=== PATIENT | male | born 1960 | race Caucasian/White ===

== ENCOUNTER 2016-09-22 13:42 | Emergency (ER) | payer MEDICAID ==
[~2016-09-22] VITALS: Ht 172.7 cm; Wt 65.0 kg
[~2016-09-22 13:42] MED LIST: AFRI0.059 EACH NARE; ALBU.5I NEB; HYDR-3535 PO; HYDR-3583 PO; PRED10 PO; PRIL20CA9 PO
[2016-09-22 13:44] VITALS: BP 140/86; PULSE 84; RESP 20; TEMP 97.7; O2SAT 97
[2016-09-22] MEDS ORDERED: PRED20 PO (14:33)
[2016-09-22] MEDS ORDERED: LISI10TA3 PO (14:33)
[2016-09-22] MEDS ORDERED: SODIUM CHLORIDE 0.9% FLUSH 5 ML FLUSH IVF PRN ×2 (15:00)
--- NOTE | 2016-09-22 15:05 | PD ---
HPI Chief Complaint: Complaint Time Seen by Provider: 15:00 Travel History International Travel<30 days: No Contact w/Intl Traveler<30days: No Traveled to known affect area: No History of Present Illness HPI Patient comes in complaining of testicular pain and swelling ongoing for approximately 3 weeks. Patient states approximately 6 weeks ago he had a colostomy reversal having some tenderness in his left testicle, but did not notice it was Swollen until Roughly 3 Weeks Ago. Patient Denies Any Fevers with This, Nausea, Vomiting, back pain, chest pain, or shortness of breath. Denies any radiation of the pain. Patient describes pain is aching like in nature. Denies any dysuria or penile discharge. PFSH Past Medical History Cancer: No Cardiovascular Problems: No COPD: Yes Diabetes: No Diminished Hearing: No Endocrine: No Gastrointestinal Disorders: Yes (colostomy, gerd) Genitourinary: Yes (past cystoscopy) Hepatitis: No Hiatal Hernia: Yes Hypertension: Yes Immune Disorder: No Musculoskeletal: Yes (back pain ) Neurologic: No Psychiatric: Yes (anxiety) Reproductive: No Respiratory: Yes (emphysema, copd) Thyroid Disease: No Past Surgical History Abdominal Surgery: Yes (colostomy with reversal ) AICD: No Cardiac Surgery: No Ear Surgery: No Endocrine Surgery: No Eye Surgery: No Genitourinary Surgery: Yes (cystoscopy) Gynecologic Surgery: No Joint Replacement: No Oral Surgery: No Pacemaker: No Thoracic Surgery: No Social History Alcohol Use: No Tobacco Use: No Substance Use: No Allergies-Medications (Allergen,Severity, Reaction): Coded Allergies: No Known Allergies (Unverified , 09/22/16) Reported Meds & Prescriptions Reported Meds & Active Scripts Active Reported Prednisone 20 Mg Tab 20 Mg PO DAILY Lisinopril 10 Mg Tab 10 Mg PO DAILY Afrin 12 Hour Nasal (Oxymetazoline HCl) 0.05% [place] 2-3 [place] EACH NARE Q12H PRN Prilosec (Omeprazole) 20 Mg Cap 20 Mg PO DAILY Albuterol Neb (Albuterol Sulfate) 2.5 Mg/0.5 Ml Neb 2.5 Mg NEB QID NEB Note: The Albuterol Sulfate Inhalation Solution is concentrated and must be diluted. Read complete instructions carefully before using. Review of Systems Except as stated in HPI: all other systems reviewed are Neg Physical Exam Narrative GENERAL: Well-developed, well nourished, in no acute distress, and non-ill appearing. SKIN: Warm and dry. Dressing of abdomen noted to be dry clean intact from recent surgery. HEAD: Atraumatic. Normocephalic. EYES: Pupils equal and round. EOMI. No scleral icterus. No injection or drainage. ENT: No nasal bleeding or discharge. Mucous membranes pink and moist. NECK: Trachea midline. Supple. No nuclear rigidity. RESPIRATORY: No accessory muscle use. No respiratory distress. GASTROINTESTINAL: Abdomen soft, minimal tenderness noted around dressing, nondistended. Hepatic and splenic margins not palpable. Normal bowel sounds 4. No pulsatile mass. GENITOURINARY: Uncircumcised. Testes descended bilaterally without evidence of rotation. No lesions or erythema. No urethral discharge. Left testicle is enlarged compared to right and tender to palpation. MUSCULOSKELETAL: No obvious deformities. No clubbing. No cyanosis. No edema. Full range of motion. NEUROLOGICAL: Awake and alert. No obvious cranial nerve deficits. Motor grossly within normal limits. Normal speech. PSYCHIATRIC: Appropriate mood and affect; insight and judgment normal. Data Data Last Documented VS Vital Signs Date Time Temp Pulse Resp B/P Pulse Ox O2 Delivery O2 Flow Rate FiO2 09/22/16 13:44 97.7 84 20 140/86 97 Room Air Orders Us Testicles W Doppler (09/22/16 14:48) Sodium Chloride 0.9% Flush (Ns Flush) (09/22/16 15:00) Urinalysis - C+S If Indicated (09/22/16 14:52) Sodium Chloride 0.9% Flush (Ns Flush) (09/22/16 15:00) Labs Laboratory Tests Test 09/22/16 15:15 Urine Color YELLOW Urine Turbidity HAZY Urine pH 6.0 Urine Specific [place] 1.035 Urine Protein 30 mg/dL Urine Glucose (UA) NEG mg/dL Urine Ketones NEG mg/dL Urine Occult Blood NEG Urine Nitrite NEG Urine Bilirubin NEG Urine Urobilinogen 2.0 MG/DL Urine Leukocyte Esterase TRACE Urine RBC 3 /hpf Urine WBC 2 /hpf Urine Squamous Epithelial <1 /hpf Cells Urine Bacteria RARE /hpf Urine Mucus MANY /lpf Microscopic Urinalysis Comment CULT NOT INDICATED MDM Medical Decision Making Medical Screen Exam Complete: Yes Emergency Medical Condition: Yes Differential Diagnosis Epididymitis, orchitis, inguinal hernia, cancer, hydrocele, varicosities, other Narrative Course Patient in no obvious distress upon re-evaluation. All pertinent laboratory/ Radiology result(s) discussed with patient. Discussed patient with Dr. Ramírez, who saw and evaluated the patient is in agreement with plan of care and disposition. Patient was instructed on using NSAID pain medications reports he has plenty of ibuprofen at home. Patient was also advised on use of a jockstrap for additional support and to decrease pain as well as the hydrocele. Any questions/concerns in reference to patient diagnosis/condition discussed and clarified prior to patient's discharge. Reinforced sheer importance of close follow up with patient's primary physician or primary care clinic and/or urologist. Instructed patient to return to ED immediately, if symptoms return/ worsen. Pt showed understanding of above instructions. Further instructions and recommendations were detailed in discharge paperwork. Pt ambulated without difficulty out of ED at discharge. Diagnosis Primary Impression: Hydrocele in adult Additional Impression: Cyst of epididymis determined by ultrasound Referrals: Chidi Stephen MD Patient Instructions: General Instructions, Hydrocele (ED) Additional Instructions: Follow-up with your primary care physician and/or urologist this week for reevaluation. Use [id number] ibuprofen as needed for pain. Follow instructions on the packaging. Use a jock strap for additional support. Return to the emergency department if symptoms get worse. Disposition: 01 DISCHARGE HOME Condition: Stable Fabio Del Real Sep 22, 2016 15:05
[2016-09-22 15:39] LABS: BACTERIA, URINE RARE /hpf; BLOOD, URINE NEG (NEG); COMMENT (UR) CULT NOT INDICATED; CULTURE IF INDICATED CULT NOT INDICATED; GLUCOSE,URINE NEG (NEG); KETONE, URINE NEG (NEG); MUCUS URINE MANY /lpf (OCC); NITRITE,URINE NEG (NEG); SQUAMOUS EPITHELIAL CELL URINE <1 /hpf (0-5); URINE COLOR YELLOW (YELLW/STRAW)
--- NOTE | 2016-09-22 16:46 | RADRPT ---
EXAM DATE/TIME: 09/22/2016 15:18 [facility] COMPARISON: No previous studies available for comparison. INDICATIONS : Testicular swelling. MEDICAL HISTORY : Hypertension. COPD. Colostomy. GERD. SURGICAL HISTORY : Colostomy with reversal. Cystoscopy. ENCOUNTER: Initial ACUITY: 3 months PAIN SCORE: 6/10 LOCATION: Bilateral testicles. MEASUREMENTS: RIGHT TESTICLE: 4.1 x 2.8 x 2.8 x cm LEFT TESTICLE: 4.3 x 3.2 x 2.9 x cm FINDINGS: Both testicles appear normal in size and demonstrate normal vascularity. There is cystic change iden tified in the epididymal heads bilaterally. There is a 3 mm echogenic focus seen off the periphery o f the left testicle likely representing a testicular appendix. There are bilateral hydroceles being large on the left and mild on the right. A significant varicocele is not seen. CONCLUSION: 1. The testicles appear normal. 2. Bilateral hydroceles being large on the left and mild on the right. 3. Mild cystic change seen in the epididymal head regions likely representing epididymal head cysts or spermatoceles. Mendoza Donahue MD on September 22, 2016 at 16:23 Board Certified Radiologist. This report was verified electronically.
--- NOTE | 2016-09-22 17:15 | PD ---
Data Data Last Documented VS Vital Signs Date Time Temp Pulse Resp B/P Pulse Ox O2 Delivery O2 Flow Rate FiO2 09/22/16 13:44 97.7 84 20 140/86 97 Room Air Orders Us Testicles W Doppler (09/22/16 14:48) Sodium Chloride 0.9% Flush (Ns Flush) (09/22/16 15:00) Urinalysis - C+S If Indicated (09/22/16 14:52) Sodium Chloride 0.9% Flush (Ns Flush) (09/22/16 15:00) Labs Laboratory Tests Test 09/22/16 15:15 Urine Color YELLOW Urine Turbidity HAZY Urine pH 6.0 Urine Specific [place] 1.035 Urine Protein 30 mg/dL Urine Glucose (UA) NEG mg/dL Urine Ketones NEG mg/dL Urine Occult Blood NEG Urine Nitrite NEG Urine Bilirubin NEG Urine Urobilinogen 2.0 MG/DL Urine Leukocyte Esterase TRACE Urine RBC 3 /hpf Urine WBC 2 /hpf Urine Squamous Epithelial <1 /hpf Cells Urine Bacteria RARE /hpf Urine Mucus MANY /lpf Microscopic Urinalysis Comment CULT NOT INDICATED MDM Supervised Visit with HENRI: Yes Narrative Course The history, exam, and medical decision-making in the associated mid-level provider note were completed with my assistance. I reviewed and agree with the findings presented. I attest that I had a [id number] encounter with the patient on the same day, and personally performed and documented my assessment and findings in the medical record. *My assessment and Findings: 56-year-old male status post recent colonoscopy reversal presents with worsening left testicular pain. Found of hydrocele. Possibly related to surgery. Recommend supportive treatment, scrotal elevation, follow-up with urology. Diagnosis Primary Impression: Hydrocele in adult Additional Impression: Cyst of epididymis determined by ultrasound Referrals: Chidi Stephen MD Patient Instructions: General Instructions, Hydrocele (ED) Additional Instruction: Follow-up with your primary care physician and/or urologist this week for reevaluation. Use [id number] ibuprofen as needed for pain. Follow instructions on the packaging. Return to the emergency department if symptoms get worse. Disposition: 01 DISCHARGE HOME Condition: Stable Mati Ramírez MD Sep 22, 2016 17:15
[2016-09-22 17:28] VITALS: BP 125/82; PULSE 80; RESP 20; O2SAT 97
[2016-12-26] MEDS ORDERED: TAMS5CAP PO (11:36)
[2016-12-31] MEDS ORDERED: LISI10TA3 PO (11:10)
[2016-12-31] MEDS ORDERED: IPRASOL INH (11:11)
[2017-01-17] MEDS ORDERED: HYDR-3583 PO (09:32)
[2017-02-07] MEDS ORDERED: HYDR-3583 PO (13:35)
[2017-02-11] MEDS ORDERED: OMEP20TA PO (11:20)
[2017-02-11] MEDS ORDERED: AFRI0.052 EACH NARE (11:20)
== END 2016-09-22 17:28 | disposition home or self-care (01) ==
LOC: NEPE 13:42
DX: N43.3 Hydrocele, unspecified (principal); N50.3 Cyst of epididymis; J44.9 Chronic obstructive pulmonary disease, unspecified; Z43.3 Encounter for attention to colostomy; Z46.9 Encounter for fitting and adjustment of unspecified device; I10 Essential (primary) hypertension; F41.9 Anxiety disorder, unspecified
CPT/HCPCS: 76870; 81001; 93975

== ENCOUNTER → 2017-01-17 | Day surgery (SDC) | payer MEDICAID ==
[~2017-01-17] VITALS: Ht 170.2 cm; Wt 65.2 kg
[~2017-01-17] MED LIST changes: +ACETAMINOPHEN 1000 MG/100 ML VIAL IV ONE; +ACETAMINOPHEN/HYDROcodone 325 MG/10 MG TAB PO PRN; +AFRI0.052 EACH NARE; -ALBU.5I NEB; +BUPIVACAINE HCL PF 0.5% 30 ML VIAL ONE; +CHLORHEXIDINE GLUCONATE 2 % 1 PACK (2 CLOTHS) TOPICAL PRN; +DO NOT ADM ANY ANTICOAGULANT DRUGS PRN; +FAMOTIDINE 20 MG/2 ML VIAL ONE; -HYDR-3535 PO; +HYDROmorphone HCL PF 2 MG/ML VIAL IV PRN; +INSULIN HUMAN REGULAR 1,000 UNITS/10 ML VIAL SQ PRN; +IPRASOL INH; +LACTATED RINGER'S 1000 ML INJ 1,000 ML IV ONE; +LACTATED RINGER'S 1000 ML IV PRN; +LISI10TA3 PO; +METOPROLOL TARTRATE 25 MG TAB PO PRN; +MIDAZOLAM HCL 2 MG/2 ML VIAL ONE; +MORPHINE SULFATE 4 MG/ML INJ ONE; +OMEP20TA PO; +ONDANSETRON HCL 4 MG/2 ML VIAL IV PUSH ONE; +ONDANSETRON HCL 4 MG/2 ML VIAL IV PUSH PRN; +POVIDONE IODINE 5% (ANTISEPSIS KIT) 4 APPLICATIONS EACH NARE PRN; -PRED10 PO; +PRED20 PO; +PROPOFOL 200 MG/20 ML AMP IV ONE; +SODIUM CHLORID 0.9% 500 ML IV PRN; +fentaNYL CITRATE 250 MCG/5 ML AMP ONE
[2017-01-17] MEDS: ceFAZolin 1,000 MG/NS 100 ML IV SCH ×4 (09:30)
[2017-01-17 09:33] VITALS: BP 131/79; PULSE 79; RESP 20; TEMP 98.7; O2SAT 99
[2017-01-17 09:58] LABS: AUTOMATED NEUTROPHIL # 11.1 TH/MM3 (1.8-7.7); BASOPHIL # 0.1 TH/MM3 (0-0.2); BASOPHIL % 0.5 % (0.0-2.0); HEMO FLAGS DIFF FINAL; LYMPH % 2.9 % (9.0-44.0); LYMPHOCYTE # 0.3 TH/MM3 (1.0-4.8); MEAN CELL VOLUME 79.8 FL (80.0-100.0); MEAN CORPUSCULAR HGB CONC 31.3 % (32.0-36.0); NEUT % 92.6 % (16.0-70.0); PLATELET COUNT 442 TH/MM3 (150-450); RED BLOOD COUNT 4.51 MIL/MM3 (4.50-5.90); RED CELL DISTRIBUTION WIDTH 16.9 % (11.6-17.2); WHITE BLOOD COUNT 11.9 TH/MM3 (4.0-11.0)
--- NOTE | 2017-01-17 11:27 | PD.OP ---
Operative Report Date of Surgery: January 17, 2017 Preoperative Diagnosis: Left hydrocele Postoperative Diagnosis: Same Procedure: Left hydrocelectomy Anesthesia: Gen. LMA Surgeon: Osorio Angeles Accounting Technician(s): Constanza Resident Surgeon: None Operation and Findings: Mendoza Turner is a 56-year-old male with history of a left hydrocele. Decision was made to bring the patient to the operating room undergo left hydrocelectomy. Risk and benefits were discussed preoperatively he was willing to proceed. The patient was brought to the operating room and was identified by myself as Mendoza Turner. He was placed on the operating room table in the supine position, prepped and draped in usual sterile fashion, received preprocedure antibiotics, and general LMA anesthesia was administered. 15 blade was used to make the trans-scrotal incision over the left hemiscrotum. The overlying tissue around the hydrocele sac was divided and then the large hydrocele sac with the testicle was delivered out of the scrotum. Ray-Darian sponges were used to remove any overlying tissue from the hydrocele sac. Once that was done then the hydrocele sac was opened and the fluid was drained. It was brown in color as were some minimal bleeding noted along the testicle. Intraoperative evaluation of the testicle showed no evidence of any masses that could be palpated. The heart usual sac was then bottlenecked and residual excess tissue was then cut. The edges of the wound were then cauterized. The edges were brought together and this was oversewn with a 3-0 chromic suture. Another running 3-0 chromic suture was then placed over the oversewn portion in interlocking fashion. The left hemiscrotum was then irrigated and any areas of bleeding were cauterized. Marsha was then placed in the left hemiscrotum. The testicle was then delivered back into the left hemiscrotum in the lateral sulcus was identified. The wound was closed with a running 3-0 Vicryl suture. 0.5% Marcaine was placed into the wound prior to closure. He tolerated the procedure well and was extubated and transferred to the recovery room a stable condition. He will follow-up in one week in the office. Osorio Angeles DO January 17, 2017 11:27
[2017-01-17 12:30] VITALS: BP 126/78; PULSE 75; RESP 18; TEMP 98.1; O2SAT 95
== END | disposition home or self-care (01) ==
LOC: HSDC 08:44
PROVIDERS: ATTEND Urology
DX: N43.3 Hydrocele, unspecified (principal)
CPT/HCPCS: 00920; 55040; 84153; 85025; 88302; J0131; J0690; J2250; J2270; J2405; J3010; J7120; 88305

== ENCOUNTER 2017-03-27 17:53 | Emergency (ER) | payer MEDICAID ==
[~2017-03-27] VITALS: Ht 172.7 cm; Wt 68.0 kg
[~2017-03-27 17:53] MED LIST changes: -ACETAMINOPHEN 1000 MG/100 ML VIAL IV ONE; -ACETAMINOPHEN/HYDROcodone 325 MG/10 MG TAB PO PRN; -AFRI0.059 EACH NARE; -BUPIVACAINE HCL PF 0.5% 30 ML VIAL ONE; -CHLORHEXIDINE GLUCONATE 2 % 1 PACK (2 CLOTHS) TOPICAL PRN; -DO NOT ADM ANY ANTICOAGULANT DRUGS PRN; -FAMOTIDINE 20 MG/2 ML VIAL ONE; -HYDROmorphone HCL PF 2 MG/ML VIAL IV PRN; -INSULIN HUMAN REGULAR 1,000 UNITS/10 ML VIAL SQ PRN; -IPRASOL INH; -LACTATED RINGER'S 1000 ML INJ 1,000 ML IV ONE; -LACTATED RINGER'S 1000 ML IV PRN; -METOPROLOL TARTRATE 25 MG TAB PO PRN; -MIDAZOLAM HCL 2 MG/2 ML VIAL ONE; -MORPHINE SULFATE 4 MG/ML INJ ONE; -ONDANSETRON HCL 4 MG/2 ML VIAL IV PUSH ONE; -ONDANSETRON HCL 4 MG/2 ML VIAL IV PUSH PRN; -POVIDONE IODINE 5% (ANTISEPSIS KIT) 4 APPLICATIONS EACH NARE PRN; -PRIL20CA9 PO; -PROPOFOL 200 MG/20 ML AMP IV ONE; -SODIUM CHLORID 0.9% 500 ML IV PRN; -fentaNYL CITRATE 250 MCG/5 ML AMP ONE
[2017-03-27 17:55] VITALS: BP 134/72; PULSE 122; RESP 24; TEMP 98.2; O2SAT 99
[2017-03-27] MEDS ORDERED: SODIUM CHLOR 0.9% 1000 ML INJ 1,000 ML IV SCH (18:30)
--- NOTE | 2017-03-27 18:40 | PD ---
HPI Chief Complaint: Abnormal Results Time Seen by Provider: 18:30 Travel History International Travel<30 days: No Contact w/Intl Traveler<30days: No Traveled to known affect area: No History of Present Illness HPI This is a 56-year-old male who is sent here by his primary care physician office for evaluation of "abnormal labs." He reports that a few days ago he had outpatient blood work and he was called today and told that he had anemia. Was recommended that he come here for further evaluation. The patient reports that he feels normal. He reports some chronic dyspnea secondary to COPD but denies any worsening symptoms. He denies any dizziness, lightheadedness, abdominal pain, weakness. He reports that a few days ago he was having some dry heaves and some "flulike symptoms" and so he has been taking Pepto-Bismol. He reports that he has been having black stools since he started taking the Pepto-Bismol. He denies any history of GI bleeding. He has no other complaints. PFSH Past Medical History Cancer: No Cardiovascular Problems: No COPD: Yes Diabetes: No Diminished Hearing: No Endocrine: No Gastrointestinal Disorders: Yes (colostomy, gerd) Genitourinary: Yes (past cystoscopy) Hepatitis: No Hiatal Hernia: Yes Hypertension: Yes Immune Disorder: No Musculoskeletal: Yes (back pain ) Neurologic: No Psychiatric: Yes (anxiety) Reproductive: No Respiratory: Yes (COPD) Thyroid Disease: No Tetanus Vaccination: < 5 Years Influenza Vaccination: No Past Surgical History Abdominal Surgery: Yes AICD: No Cardiac Surgery: No Ear Surgery: No Endocrine Surgery: No Eye Surgery: No Genitourinary Surgery: Yes Gynecologic Surgery: No Joint Replacement: No Oral Surgery: No Pacemaker: No Thoracic Surgery: No Social History Alcohol Use: No Tobacco Use: Yes Substance Use: No Allergies-Medications (Allergen,Severity, Reaction): Coded Allergies: Aspirin (Verified Allergy, Severe, BLEEDING, 03/27/17) PT STATES STOMACH GETS BLOATED AND BLEEDING Reported Meds & Prescriptions Reported Meds & Active Scripts Active Hydrocodone-Acetaminophen 10-325 mg Tab 1 Tab PO Q8HR PRN Lisinopril 10 Mg Tab 10 Mg PO DAILY Reported Afrin Nasal [place] (Oxymetazoline HCl) 0.05% [place] 2-3 [place] EACH NARE Q12H PRN Omeprazole 20 Mg Tab 20 Mg PO DAILY Prednisone 20 Mg Tab 10 Mg PO BID Review of Systems Except as stated in HPI: all other systems reviewed are Neg Physical Exam Narrative GENERAL: Well-developed well-nourished male in no acute distress SKIN: Warm and dry. HEAD: Atraumatic. Normocephalic. EYES: Pupils equal and round. No scleral icterus. No injection or drainage. ENT: No nasal bleeding or discharge. Mucous membranes pink and moist. NECK: Trachea midline. No JVD. CARDIOVASCULAR: Regular rate and rhythm. No murmur appreciated. RESPIRATORY: No accessory muscle use. Clear to auscultation. Breath sounds equal bilaterally. GASTROINTESTINAL: Abdomen soft, non-tender, large abdominal wall hernias noted. Rectal examination was performed and it does reveal black stool but it is Hemoccult negative. MUSCULOSKELETAL: No obvious deformities. No clubbing. No cyanosis. No edema. NEUROLOGICAL: Awake and alert. No obvious cranial nerve deficits. Motor grossly within normal limits. Normal speech. PSYCHIATRIC: Appropriate mood and affect; insight and judgment normal. Data Data Last Documented VS Vital Signs Date Time Temp Pulse Resp B/P Pulse Ox O2 Delivery O2 Flow Rate FiO2 03/27/17 19:19 84 16 112/57 95 Room Air 03/27/17 17:55 98.2 Orders Type And Screen (03/27/17 18:30) Complete Blood Count With Diff (03/27/17 18:30) Comprehensive Metabolic Panel (03/27/17 18:30) Prothrombin Time / Inr (Pt) (03/27/17 18:30) Act Partial Throm Time (Ptt) (03/27/17 18:30) Sodium Chlor 0.9% 1000 Ml Inj (Ns 1000 M (03/27/17 18:30) Labs Laboratory Tests Test 03/27/17 19:00 White Blood Count 15.3 TH/MM3 Red Blood Count 4.10 MIL/MM3 Hemoglobin 10.9 GM/DL Hematocrit 33.2 % Mean Corpuscular Volume 81.0 FL Mean Corpuscular Hemoglobin 26.6 PG Mean Corpuscular Hemoglobin 32.9 % Concent Red Cell Distribution Width 23.8 % Platelet Count 430 TH/MM3 Mean Platelet Volume 8.3 FL Neutrophils (%) (Auto) 88.7 % Lymphocytes (%) (Auto) 5.9 % Monocytes (%) (Auto) 5.0 % Eosinophils (%) (Auto) 0.0 % Basophils (%) (Auto) 0.4 % Neutrophils # (Auto) 13.6 TH/MM3 Lymphocytes # (Auto) 0.9 TH/MM3 Monocytes # (Auto) 0.8 TH/MM3 Eosinophils # (Auto) 0.0 TH/MM3 Basophils # (Auto) 0.1 TH/MM3 CBC Comment DIFF FINAL Differential Comment Prothrombin Time 10.1 SEC Prothromb Time International 0.9 RATIO Ratio Activated Partial 21.5 SEC Thromboplast Time Sodium Level 136 MEQ/L Potassium Level 4.6 MEQ/L Chloride Level 105 MEQ/L Carbon Dioxide Level 24.7 MEQ/L Anion Gap 6 MEQ/L Blood Urea Nitrogen 24 MG/DL Creatinine 0.94 MG/DL Estimat Glomerular Filtration 83 ML/MIN Rate Random Glucose 96 MG/DL Calcium Level 9.0 MG/DL Total Bilirubin 0.5 MG/DL Aspartate Amino Transf 11 U/L (AST/SGOT) Alanine Aminotransferase 26 U/L (ALT/SGPT) Alkaline Phosphatase 67 U/L Total Protein 6.9 GM/DL Albumin 3.7 GM/DL [facility] Medical Decision Making Medical Screen Exam Complete: Yes Emergency Medical Condition: Yes Medical Record Reviewed: Yes Differential Diagnosis Upper GI bleed, Pepto-Bismol induced black stools, chronic anemia, iron deficiency anemia Narrative Course This is a 56-year-old male who was sent here because he had an outpatient hemoglobin level of 9.9. He reports that he began using Pepto-Bismol few days ago and he has been having black stools since then. He currently feels fine with no acute medical complaints. Rectal examination does reveal black stools but they are Hemoccult negative and I suspect that they are secondary to the Pepto-Bismol use. He has a large abdominal hernia which is not new. He follows with Dr. Jennings the colorectal surgeon. He appears to have issues with chronic anemia, typically his hemoglobin is in the 10 range. In triage his heart rate was noted to be 122 however his heart rate has been consistently in the 80s during his hospital stay. The patient's hemoglobin here is 10.9 which appears to be consistent with his baseline chronic anemia. His hemoglobin was 10.9 during outpatient testing in December. At this point in time the plan will be to have the patient follow-up with his primary care physician, he will likely be referred to a legal activity adjudicator for further workup of this chronic anemia. Diagnosis Primary Impression: Chronic anemia Additional Impression: Black stool Additional Instructions: As discussed, the Pepto-Bismol as cause your stool turned black. This is not dangerous and will go away when you quit taking the Pepto-Bismol. You do have a chronic anemia. Follow-up with your primary care physician for further evaluation. Return for any emergent medical conditions. Med/Other Pt SpecificInfo: No Change to Meds Disposition: 01 DISCHARGE HOME Condition: Stable Mahad Segundo Mar 27, 2017 18:40
[2017-03-27 19:19] VITALS: BP 112/57; PULSE 84; RESP 16; O2SAT 95
[2017-03-27 19:33] LABS: AUTOMATED NEUTROPHIL # 13.6 TH/MM3 (1.8-7.7); BASOPHIL # 0.1 TH/MM3 (0-0.2); BASOPHIL % 0.4 % (0.0-2.0); HEMATOCRIT 33.2 % (39.0-51.0); HEMO FLAGS DIFF FINAL; LYMPH % 5.9 % (9.0-44.0); LYMPHOCYTE # 0.9 TH/MM3 (1.0-4.8); MEAN CORPUSCULAR HEMOGLOBIN 26.6 PG (27.0-34.0); MEAN CORPUSCULAR HGB CONC 32.9 % (32.0-36.0); NEUT % 88.7 % (16.0-70.0); PLATELET COUNT 430 TH/MM3 (150-450); RED CELL DISTRIBUTION WIDTH 23.8 % (11.6-17.2); WHITE BLOOD COUNT 15.3 TH/MM3 (4.0-11.0)
[2017-03-27 19:44] LABS: APTT (PATIENT) 21.5 SEC (24.3-30.1); INTERNATIONAL NORMALIZED RATIO 0.9 RATIO; PROTHROMBIN TIME - PATIENT 10.1 SEC (9.8-11.6)
[2017-03-27 19:47] LABS: ANION GAP 6 MEQ/L (5-15); AST (GOT) 11 U/L (15-37); BICARBONATE 24.7 MEQ/L (21.0-32.0); BLOOD UREA NITROGEN 24 MG/DL (7-18); CHLORIDE 105 MEQ/L (98-107); GLOMERULAR FILTRATION RATE 83 ML/MIN (>89); POTASSIUM 4.6 MEQ/L (3.5-5.1); SODIUM (NA) 136 MEQ/L (136-145)
[2017-03-27 19:48] LABS: ALT (GPT) 26 U/L (12-78)
[2017-03-27 19:50] LABS: ALKALINE PHOSPHATASE 67 U/L (45-117); TOTAL BILIRUBIN ADULT 0.5 MG/DL (0.2-1.0)
[2017-03-27] MEDS ORDERED: TEMAZEPAM 7.5 MG CAP PO ONE (20:45)
[2017-04-03] MEDS ORDERED: LISI10TA3 PO (14:29)
[2017-04-03] MEDS ORDERED: ALBU0.08 NEB (14:29)
[2017-04-03] MEDS ORDERED: OMEP20TA PO (14:29)
[2017-04-03] MEDS ORDERED: ALBUAER3 INH (14:29)
== END 2017-03-27 20:53 | disposition home or self-care (01) ==
LOC: NEPC 17:53
DX: D64.9 Anemia, unspecified (principal); R19.5 Other fecal abnormalities; J44.9 Chronic obstructive pulmonary disease, unspecified; K21.9 Gastro-esophageal reflux disease without esophagitis; I10 Essential (primary) hypertension; F41.9 Anxiety disorder, unspecified; Z79.899 Other long term (current) drug therapy; Z72.0 Tobacco use
CPT/HCPCS: 80053; 85025; 85610; 85730; 86850; 86900; 86901; 99284; J7030